=== PATIENT | female | born 1995 | race African-American/Black ===

== ENCOUNTER 2020-05-18 00:25 | Emergency (ER) | payer MEDICAID ==
[~2020-05-18] VITALS: Ht 147.3 cm; Wt 44.0 kg
[2020-05-18] MEDS ORDERED: ONDANSETRON HCL 4MG/2ML INJ IV STA (00:38)
[2020-05-18] MEDS ORDERED: PHENOBARBITAL IV ONE (00:45)
[2020-05-18] MEDS ORDERED: SODIUM CHLORIDE 0.9% 1,000 ML IV ONE (00:45)
[2020-05-18] MEDS ORDERED: SODIUM CHLORIDE 0.9% IV ONE (00:45)
[2020-05-18] MEDS ORDERED: LORAZEPAM 2MG/ML CPJ IV ONE (00:45)
[2020-05-18 04:01] LABS: CHLORIDE 107 mEq/L (98-107); PHENOBARBITAL 20.9 ug/mL (15.0-40.0)
[2020-05-18 04:30] LABS: HEMATOCRIT. 38.9 % (36.0-48.0); HEMOGLOBIN. 13.3 g/dL (12.0-16.0); MEAN CORPUSCULAR VOLUME 99.3 fL (81.0-99.0); RED BLOOD CELL COUNT 3.92 mill/uL (4.2-5.4)
[2020-05-18 04:31] LABS: LYMPHOCYTES % 11.5 % (20.0-50.0); MEAN PLATELET VOLUME 8.3 fl (7.4-10.4); MONOCYTES % 4.7 % (2.0-8.0); PLATELET 210 x1000/uL (130-400); RED CELL DISTRIBUTION WIDTH 12.3 % (11.6-14.6)
[2020-05-18 04:32] LABS: BASOPHILS % 0.4 % (0.0-2.0); EOSINOPHILS % 0.4 % (0.0-5.0)
[2020-05-18 05:54] VITALS: BP 94/62
== END 2020-05-18 06:56 | disposition home or self-care (01) ==
LOC: ER 00:25
DX: R56.9 Unspecified convulsions (principal); R00.0 Tachycardia, unspecified; M24.542 Contracture, left hand; M24.541 Contracture, right hand; M62.462 Contracture of muscle, left lower leg; M62.461 Contracture of muscle, right lower leg; G80.9 Cerebral palsy, unspecified
CPT/HCPCS: 36415; 80053; 80165; 80184; 85025; 96365; 96375; 99285; J2060; J2405; J2560; J7030; J7050

== ENCOUNTER 2020-06-29 00:49 | Emergency (ER) | payer MEDICAID ==
[~2020-06-29] VITALS: Ht 124.5 cm; Wt 42.0 kg
[2020-06-29 00:54] VITALS: BP 133/81
[2020-06-29] MEDS ORDERED: VALPROATE SODIUM 250MG/5ML UDC PO ONE (01:15)
[2020-06-29] MEDS ORDERED: PHENOBARBITAL ELIXIR 30 MG/7.5ML UDC PO ONE (01:15)
[2020-06-29] MEDS ORDERED: PHENOBARBITAL 60MG TABLET PO NR (01:45)
== END 2020-06-29 01:55 | disposition home or self-care (01) ==
LOC: ER 00:49
DX: Z76.0 Encounter for issue of repeat prescription (principal); G80.9 Cerebral palsy, unspecified; G40.909 Epilepsy, unspecified, not intractable, without status epilepticus; H54.7 Unspecified visual loss
CPT/HCPCS: 99283